=== PATIENT | female | born 1990 | race Caucasian/White ===

== ENCOUNTER 2020-01-07 10:17 | Observation (INO) | payer BC, SELFPAY ==
--- NOTE | 2020-01-07 | ECHO_ITS ---
Patient Info Name: Apple Cisse Age: 29 years : 1990 Gender: Female Ht: 65 in Wt: 150 lbs BSA: 1.78 m2 HR: 77 bpm BP: 108 / 71 mmHg Technical Quality: Good Exam Date: 01/07/2020 4:30 PM Exam Location: [facility] Exam Room: 301 Patient Status: Inpatient Admit Date: 01/07/2020 Flange Turner: Selina Crenshaw RCS Attending Provider: Mo Schroeder MD Exam Type: CA echo doppler w bubble study Study Info Indications - tia Complete two-dimensional, color flow and Doppler transthoracic echocardiogram is performed with agitated saline. Contrast/Agitated Saline Contrast/Ag. Saline: Agitated Saline Amount: 20.00 ml Administered By: Leanna Min RN Summary 1. Normal LV size and wall thickness; normal LV systolic and diastolic function, EF 60-65%. Normal structure of the valves. Trivial TR, RVSP 25 mmHg. Normal atrial septum, no evidence of interatrial shunt on injection of agitated normal saline. Normal sinus rhythm. Left Ventricle Left ventricular chamber dimension is normal. Left ventricular systolic function is normal, estimated at 60-65%. There is no increased left ventricular wall thickness. Left ventricular septal wall motion is normal. The left ventricular diastolic function is normal. Right Ventricle Right ventricular chamber dimension is normal. Right ventricular systolic function is normal. Left Atria Left atrial chamber dimension is normal. Right Atria Right atrial chamber dimension is normal. Atrial Septum Intact interatrial septum visualized by agitated saline imaging. Aortic Valve There is no aortic valve sclerosis. There is no aortic valve stenosis. There is trace aortic valve regurgitation. Pulmonic Valve The pulmonic valve is normal. There is trace pulmonic regurgitation. Mitral Valve The mitral valve has normal leaflets. There is no mitral valve stenosis. There is no mitral valve regurgitation. Tricuspid Valve The tricuspid valve leaflets are normal. There is no significant tricuspid valve stenosis. There is trace tricuspid valve regurgitation. No pulmonary hypertension, estimated pulmonary arterial systolic pressure is 25 mmHg. Pericardium/Pleural The pericardium appears normal. There is no pericardial effusion. Inferior Vena Cava Normal inferior vena cava with >50% collapse upon inspiration consistent with normal right atrial pressure, 10 mmHg. Aorta The aortic root size at the sinus of Valsalva is normal. The prox ascending aorta size is normal. Left Ventricular Outflow Tract Name Value Normal LVOT 2D LVOT Diameter 2.0 cm LVOT Doppler LVOT Peak Gradient 5 mmHg LVOT Mean Gradient 3 mmHg LVOT VTI 23 cm LVOT VTI/AV VTI Ratio 1.0 LVOT Stroke Volume 76 ml LVOT CO 14.9 l/min LVOT CI 8.4 l/min/m2 Pulmonic Valve
--- NOTE | ~2020-01-07 | MR_ITS ---
EXAMINATION: MR brain/brain stem wo/w con DATE: 01/08/2020 07:49 INDICATION: Right arm numbness. Right face numbness. TECHNIQUE: Magnetic resonance imaging (MRI) of the brain and brainstem was performed without and with 15 mm MultiHance intravenous contrast. Sequences included sagittal and axial T1-weighted FSE, axial diffusion-weighted FS EPI, axial T2*-weighted GRE, axial T2-weighted FLAIR Propeller, and axial T2-we ighted Propeller. Postcontrast sequences included axial and coronal T1-weighted FSE. Apparent diffusi on coefficient (ADC) maps were created. COMPARISON: Brain MRI 06/07/2008, head CTA 01/07/2020 FINDINGS: There is no intracranial hemorrhage, acute infarction, or abnormal intracranial mass lesion . The ventricles are normal in size. The paranasal sinuses are clear. The orbits are normal. The mast oid air cells are normal. IMPRESSION: 1. Normal brain. Reviewed, dictated and finalized at location A. IMPRESSION: 1. Normal brain.
--- NOTE | ~2020-01-07 | US_ITS ---
EXAMINATION: US carotid duplex BI EXAM DATE: 01/07/2020 16:04 INDICATION: Right-sided blurry vision, right arm paresthesia. TECHNIQUE: Grayscale, color and pulsed Doppler images of the cervical carotid arteries were obtained . The degree of vessel stenosis is placed in one of the following categories: normal, <50% stenosis, 50-69% stenosis, >=70% stenosis but less than near-occlusion, near-occlusion, or occlusion. Note that percent stenosis relative to normal distal artery lumen diameter is indirectly measured from velocit y measurements as described by Altaf, et al. Radiology 2003; 229:340-346. There is no prior study fo r comparison. FINDINGS: RIGHT SIDE: Right common carotid artery peak systolic velocity (PSV in cm/s): 102 Right bulb/internal carotid artery peak systolic velocity (PSV in cm/s): 96 Right internal carotid artery end diastolic velocity (EDV in cm/s): 51 Right ICA/CCA peak systolic ratio: 0.9 Right external carotid artery peak systolic velocity (PSV in cm/s): 60 Right vertebral artery antegrade flow: yes There is no focal plaque identified. LEFT SIDE: Left common carotid artery peak systolic velocity (PSV in cm/s): 82 Left bulb/internal carotid artery peak systolic velocity (PSV in cm/s): 120 Left internal carotid artery end diastolic velocity (EDV in cm/s): 58 Left ICA/CCA peak systolic ratio: 1.5 Left external carotid artery peak systolic velocity (PSV in cm/s): 86 Left vertebral artery antegrade flow: yes There is no focal plaque identified. IMPRESSION: 1. Normal right internal carotid artery. 2. Normal left internal carotid artery. > Reviewed, dictated and finalized at location A.
--- NOTE | ~2020-01-07 | CT_ITS ---
EXAMINATION: CTA brain carotid EXAM DATE: 01/07/2020 10:50 INDICATION: Right-sided paresthesia. TECHNIQUE: Noncontrast head CT. Spiral CTA of the carotid arteries was performed with intravenous i njection 100 cc of Omnipaque 350. Axial, coronal, sagittal reformatted images reviewed. Additional r eformatted images created on dedicated 3-D workstation. NASCET comparable standard used to assess th e degree of arterial stenosis. Spiral CT angiogram cerebral arteries performed with the same intrave nous injection of contrast. Source images of the brain CTA transferred to dedicated workstation for 3 -D rotational image creation. Coronal, sagittal maximum intensity pixel images also reviewed. The d ose-length product (DLP) for this examination was 1575.30 mGy-cm. The exposure was tailored accordi ng to patient size, and iterative reconstruction (ASIR) was used as additional dose reduction techniq ue. Comparison is made to prior examination from 05/19/2008. FINDINGS: Normal-appearing aortic arch, 0% carotid stenosis bilaterally. The left vertebral artery is dominant. There is no carotid or vertebral basilar arterial dissection or fibromuscular dysplasia. T here are no cerebral artery aneurysms. There is symmetric cerebral artery arborization. The sagittal, transverse and sigmoid sinuses enhance normally, no venous sinus thrombosis. Internal cerebral veins also enhance normally. There is no acute intraparenchymal hemorrhage. No evidence of intraparenchymal brain mass lesion. N o evidence of acute infarction. There is no mass effect or midline shift. There is no obstructive hyd rocephalus suspected. There are no extra-axial collections. There are no calvarial acute fractures. There are no areas of abnormal enhancement on the postcontrast images. IMPRESSION: 1. No cervical arterial dissection or cerebral artery aneurysm. 2. No acute intracranial findings. As per stroke protocol, I called negative head CT results to emergency room , discussed with LIMA kothari at 01/07/2020 10:54 CDT. Reviewed, dictated and finalized at location A. IMPRESSION: 1. No cervical arterial dissection or cerebral artery aneurysm. 2. No acute intracranial findings. As per stroke protocol, I called negative head CT results to emergency room deirdreed with LIMA Hyatt at 01/07/2020 10:54 CDT.
--- NOTE | ~2020-01-07 | XR_ITS ---
EXAMINATION: XR chest 1V portable EXAM DATE: 01/07/2020 11:22 INDICATION: Right-sided numbness. TECHNIQUE: Portable AP frontal chest x-ray was obtained. Comparison is made to prior examination from 07/21/2017. FINDINGS: The lungs are clear. There are no pleural effusions. Cardiac silhouette is prominent but magnified on this AP technique. There is no pneumothorax suspected. The bones and soft tissues are unremarkable. IMPRESSION: No acute cardiopulmonary findings. Reviewed, dictated and finalized at location A.
--- NOTE | 2020-01-07 10:25 | ECG_ITS ---
Measurements Intervals Climax Rate: 90 P: 50 AR: 125 QRS: 54 QRSD: 93 T: 38 QT: 358 QTc: 438 Interpretive Statements SINUS RHYTHM BASELINE ARTIFACT- V2 NORMAL ECG Electronically Signed On 01-07-2020 11:41:02 CDT by Abhishek Aguilar D.O.
[2020-01-07 10:27] LABS: Glucose Point of Care 101 (65-105)
--- NOTE | 2020-01-07 10:29 | ED.NEUROSD ---
HPI - Neuro Symptoms/Deficit General Chief Complaint: Suspected CVA Stated Complaint: Poss CVA Time Seen by Provider: 01/07/20 10:25 Source: patient and EMS Mode of arrival: EMS Limitations: no limitations History of Present Illness HPI Narrative: This patient is a 29 year old female who presents for evaluation of right facial numbness and right arm numbness. She states she noticed that her right eye vision were blurry at 8 30 am when she started reading an email. She reports she usually has this vision change before the start of her migraine. Then 1 hour later she noticed she developed numbness to right face and right arm down to her elbow. She denies focal weakness. She denies having an headache which is why she is concerned. Time: 08:30 Location: right face Context: gradual onset On Anticoagulants: No Related Data Home Medications Medication Instructions Recorded Confirmed No Home Medications 01/07/20 01/07/20 Allergies Allergy/AdvReac Type Severity Reaction Status Date / Time Penicillins Allergy Unknown DIFFICULTY Verified 01/07/20 10:47 BREATHING tomato Allergy Itching Verified 01/07/20 15:21 Review of Systems Review of Systems: All systems reviewed & are unremarkable except as noted in HPI and below Constitutional: Constitutional: Denies chills and Denies fever(s) Eyes: Eyes: Reports change in vision ENT: Denies dizziness Cardiovascular: Cardiovascular: Denies chest pain Respiratory: Respiratory: Denies cough and Denies dyspnea Neurologic: Denies headache(s) and Reports numbness PMFSH Past Medical History Medical History (Updated 01/07/20 @ 18:23 by Madie Zavala MD) History of migraine Surgical History Surgical History (Updated 01/07/20 @ 15:20 by Valorie Henry NP) H/O tubal ligation H/O umbilical hernia repair History of 3 sections Family History Family History (Updated 01/07/20 @ 15:22 by Valorie Henry NP) Father Healthy adult Father Healthy adult Social History Social History (Updated 01/07/20 @ 15:23 by Valorie Henry NP) Social History: the patient is engaged to gentleman that is in the . She has 4 children. 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 Her mom she said could be the power contract administration coordinator for healthcare. The patient is a full code. Occasionally drinks alcohol. She tells me that she does not use tobacco. She said she is is marijuana or illicit drugs. Smoking packs per day: 0.25 Smoking cigarettes per day: 5.0 Years smoked: 5 Smoking pack-years: 1.25 Alcohol intake: current Drinks per week: 1 Substance use: never Living arrangements: with family Gender identity (if verbalized by the patient): Female Sexual Orientation (if Verbalized by the Patient): Straight or Heterosexual Spiritual care concerns: No Exam Narrative: Exam Narrative: GENERAL: Well-appearing, well-nourished, and in no acute distress. HEAD: Normocephalic, atraumatic EYES: PERRLA and EOMI, conjunctiva clear without discharge EARS: TM's clear bilaterally without erythema or dullness NOSE: Nares clear, no rhinorrhea or epistaxis THROAT:Mucous membranes moist, Oropharynx normal without erythema, exudate, peritonsillar swelling or fluctuance NECK: Supple, without lymphadenopathy or mass RESPIRATORY: No respiratory distress, Airway patent, Respirations non-labored, Clear to auscultation without rales, rhonchi or wheeze HEART: Regular rate and rhythm. No murmur heard. Normal peripheral pulses. ABDOMEN: Soft, nontender, nondistended, normal active bowel sounds. No masses. No rebound or guarding, No organomegaly. EXTREMITIES: No edema, normal strength with full range of motion. SKIN: Warm, dry, normal color without rash NEURO: Alert and oriented x3. CN 2-12 grossly intact. PSYCH: Normal mood and affect. Course Consultations Consultation #1: I spoke with Dr. Kellogg at [facility] (stroke Attending). He agrees patient is
[2020-01-07 10:41] VITALS: BP 123/84; PULSE 88; RESP 16; TEMP 36.9; O2SAT 100
[2020-01-07] MEDS: diphenhydrAMINE HCl INJ 50 MG/ML VIAL 25 MG IV PUSH (10:48)
[2020-01-07] MEDS: METOCLOPRAMIDE HCL INJ 10 MG/2 ML VIAL IV PUSH (10:48)
[2020-01-07 11:03] LABS: Basophils Absolute Auto 0.1 K/mm3 (0.0-0.1); Basophils Percent Auto 0.5 % (0.2-1.2); Eosinophils Percent Auto 0.3 % (0-4.4); Hematocrit 42.6 % (37.0-47.0); Hemoglobin 14.4 g/dL (12.0-15.0); Immature Granulocyte Absolute 0.02 K/mm3 (0.00-0.031); Immature Granulocyte Percent A 0.2 % (0-0.5); Lymphocytes Absolute Auto 2.68 K/mm3 (0.9-3.2); Lymphocytes Percent Auto 28.3 % (18.3-44.2); Mean Corpuscular HGB Conc 33.8 g/dl (32-36); Mean Corpuscular Hemoglobin 32.7 pg (26-34); Mean Corpuscular Volume 96.6 fl (80-100); Mean Platelet Volume 10.2 fl (7.4-10.4); Monocytes Absolute Auto 0.5 K/mm3 (0.1-0.6); Monocytes Percent Auto 5.6 % (2.6-8.5); Neutrophils Absolute Auto 6.2 K/mm3 (1.3-6.7); Neutrophils Percent Auto 65.1 % (45.5-73.1); Platelet Count Result 161 k/mm3 (150-375); Red Blood Count 4.41 M/mm3 (4.2-5.4); White Blood Count 9.5 K/mm3 (4.5-10.0)
[2020-01-07 11:11] LABS: Prothrombin Time 12.8 Seconds (11.1-14.7)
[2020-01-07 11:12] LABS: Partial Thromboplastin Time 29.4 SECONDS (22.3-36.8)
[2020-01-07 11:39] LABS: Alanine Aminotransferase 17 U/L (4-35); Albumin Level 4.3 g/dL (3.5-5.1); Alkaline Phosphatase 82 U/L (38-126); Aspartate Amino Transferase 25 U/L (14-36); Bilirubin,Total 0.9 mg/dL (0.2-1.3); Blood Urea Nitrogen 9 mg/dL (7-17); Calcium 8.2 mg/dL (8.4-10.2); Carbon Dioxide 24 mmol/L (22-30); Chloride 101 mmol/L (98-107); Estimated CRCL calculation 123 ml/min; Estimated Glomerular Filt Rate > 60; Glucose 89 mg/dL (65-105); Potassium 3.6 mmol/L (3.4-5.0); Sodium 136 mmol/L (137-145)
[2020-01-07 11:49] LABS: Troponin I < 0.012 ng/mL (0.000-0.034)
[2020-01-07 12:42] VITALS: BP 106/64; PULSE 74; RESP 18; O2SAT 99
[2020-01-07] MEDS: ASPIRIN 81 MG CHEWABLE TABLET 324 MG PO (12:45)
[2020-01-07 13:40] VITALS: BP 108/71; PULSE 73; RESP 20; O2SAT 100
[2020-01-07 13:57] VITALS: BMI 27.6
[2020-01-07 14:00] VITALS: BP 108/78; PULSE 78; RESP 18; TEMP 37.2; O2SAT 100
--- NOTE | 2020-01-07 14:01 | ADMGEN ---
This patient, Apple Cisse, was admitted to [facility] Surg Room 301-01. Patient/family oriented to hospital policies and general routines including ID bracelet, bed and alarms, visiting hours, pain management, procedures, bathroom and other care routines, personal items, smoking policy, room service/diet, and visiting hours. Valuables list has been completed. Information on how to activate the Rapid Response Team has been discussed. Patient/Family are encouraged to report perceived risks to care and to ask questions if they do not understand what they are told or what they should do.
--- NOTE | 2020-01-07 15:14 | PM.IMHP ---
H&P: HPI History of Present Illness Chief complaint: right arm/right face paresthesia Narrative: Apple Cisse is a 29 year old female who has no past medical history. The patient stated that she had fever and chills with body aches about 1 week ago and was tested for covid 19 and was found to be negative. The patient no longer has any fever or chills but this morning she woke up with numbness and tingling to the right side of her face and down her right arm. She has no history of any CVAs are hypertension in the past. She is not taking any arbn-gfq-blxuong or prescribed medication at this time. The patient did not take anything to relieve this discomfort. This was also accompanied by right eye blurred vision this all started about 830 this morning when she started reading or e-mail. She states that she does have migraines and will have blurred vision just prior to having a migraine but she just had the blurred vision without a migraine today. An hour after the blurred vision started then she developed the numbness and tingling to the right side of her face and right arm and down her right elbow. She has no focal weakness. No migraine at this time. CT of the brain shows nothing acute. Chest x-ray was read as no acute cardiopulmonary findings per Radiology. Patient was given Benadryl Reglan and a chewable aspirin. Patient stated that she has some mild numbness and tingling now to the right side of her face but no longer to her arm and still has some mild blurred vision right eye but is improved. Date of service 01/07/2020 Review of Systems Review of Systems: All systems reviewed & are unremarkable except as noted in HPI and below Constitutional: Constitutional: Reports as per HPI and Reports no additional constitutional complaints Eyes: Eyes: Reports as per HPI and Reports no additional eye complaints ENT: Reports system reviewed and no additional complaints, except as documented and Reports Normal hearing present Cardiovascular: Cardiovascular: Reports no additional cardiovascular complaints Respiratory: Respiratory: Reports no additional respiratory complaints and Reports no additional respiratory complaints Gastrointestinal: Gastrointestinal: Reports as per HPI and Reports no additional gastrointestinal complaints Musculoskeletal: Musculoskeletal: Reports no additional musculoskeletal complaints Integumentary/Breasts: Skin/Breast: Reports system reviewed and no additional complaints, except as docu and Reports as per HPI Neurologic: Reports system reviewed and no additional complaints, except as documented, Reports as per HPI and Reports Normal hearing present Psychiatric: Psychiatric: Reports no additional psychiatric complaints and Reports as per HPI Endocrine: Endocrine: Reports no additional endocrine complaints Hematologic/Lymphatic: Hematologic/Lymphatic: Reports no additional hematologic/lymphatic complaints Allergic/Immunologic: Allergic/Immunologic: Reports no additional allergic/immunologic complaints [facility] Past Medical History Medical History (Updated 01/07/20 @ 15:20 by Valorie Henry NP) History of migraine Surgical History Surgical History (Updated 01/07/20 @ 15:20 by Valorie Henry NP) H/O tubal ligation H/O umbilical hernia repair History of 3 sections Family History Family History (Updated 01/07/20 @ 15:22 by Valorie Henry NP) Father Healthy adult Father Healthy adult Social History Social History (Updated 01/07/20 @ 15:23 by Valorie Henry NP) Social History: the patient is engaged to [employer] that is in the . She has 4 children. 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 The patient is a full code. Occasionally drinks alcohol. She tells me that she does not use tobacco. She said she is is marijuana or illicit drugs. Smoking packs per day: 0.25 Smoking cigarettes per day: 5.0
[2020-01-07 20:00] VITALS: PULSE 77
[2020-01-07 21:53] VITALS: BP 112/74; PULSE 63; RESP 20; TEMP 37.3; O2SAT 99
[2020-01-08] VITALS (9 sets, daily range): BP systolic 112–116; BP diastolic 72–82; PULSE 61–98; RESP 18–20; TEMP 36.8–37.2; O2SAT 99–100
[2020-01-08 06:03] LABS: Basophils Absolute Auto 0.1 K/mm3 (0.0-0.1); Basophils Percent Auto 0.6 % (0.2-1.2); Eosinophils Absolute Auto 0.1 K/mm3 (0-0.3); Eosinophils Percent Auto 0.8 % (0-4.4); Hematocrit 39.8 % (37.0-47.0); Hemoglobin 13.6 g/dL (12.0-15.0); Immature Granulocyte Absolute 0.03 K/mm3 (0.00-0.031); Immature Granulocyte Percent A 0.3 % (0-0.5); Lymphocytes Absolute Auto 2.93 K/mm3 (0.9-3.2); Lymphocytes Percent Auto 33.6 % (18.3-44.2); Mean Corpuscular HGB Conc 34.2 g/dl (32-36); Mean Corpuscular Hemoglobin 32.6 pg (26-34); Mean Corpuscular Volume 95.4 fl (80-100); Mean Platelet Volume 10.6 fl (7.4-10.4); Monocytes Absolute Auto 0.6 K/mm3 (0.1-0.6); Monocytes Percent Auto 7.2 % (2.6-8.5); Neutrophils Percent Auto 57.5 % (45.5-73.1); Platelet Count Result 145 k/mm3 (150-375); Red Blood Count 4.17 M/mm3 (4.2-5.4); White Blood Count 8.7 K/mm3 (4.5-10.0)
[2020-01-08 06:24] LABS: Alanine Aminotransferase 15 U/L (4-35); Albumin Level 4.2 g/dL (3.5-5.1); Alkaline Phosphatase 72 U/L (38-126); Aspartate Amino Transferase 23 U/L (14-36); Bilirubin,Total 1.3 mg/dL (0.2-1.3); Blood Urea Nitrogen 8 mg/dL (7-17); CRP 0.6 mg/dL (<1.0); Calcium 8.7 mg/dL (8.4-10.2); Carbon Dioxide 25 mmol/L (22-30); Chloride 104 mmol/L (98-107); Estimated CRCL calculation 139 ml/min; Estimated Glomerular Filt Rate > 60; Glucose 91 mg/dL (65-105); Potassium 3.7 mmol/L (3.4-5.0); Sodium 136 mmol/L (137-145)
[2020-01-08 07:57] LABS: Cholesterol 167 mg/dL (0-200); HDL Direct 61 mg/dL; Triglycerides 116 mg/dL (<150)
[2020-01-08] MEDS: ASPIRIN 325 MG ENTERIC TABLET PO (08:06)
[2020-01-08 08:07] LABS: LDL Cholesterol Direct 90 mg/dL
--- NOTE | 2020-01-08 13:04 | PM.IMPN ---
Progress Note: A&P Assessment and Plan (1) TIA (transient ischemic attack): Code(s): G45.9 - Transient cerebral ischemic attack, unspecified Status: Acute Assessment and Plan: She presented with symptoms which are concerning for TIA. The emergency doctor spoke with the [facility] Stroke Team who advised she is not a candidate for tPA and recommended admission to our facility for MRI. She was given ASA. Dr. Guillaume with neurology is on board. CTA head/neck revealed 0% carotid stenosis bilaterally with no cervical arterial dissection or cerebral artery aneurysm, no hemorrhage, no mass lesion, and no acute infarction. Brain MRI performed today was unremarkable. Carotid doppler US confirmed normal internal carotid arteries. Echocardiogram with bubble study was performed with no evidence of interatrial shunt, EF 60-65%, Trivial TR RVSP 25 mmHg, and normal diastolic function. Lipid panel revealed LDL 90, HDL 61, and total cholesterol 167. Plan to begin high-intensity statin for secondary prevention. Continue ASA. Will order LACY, anti-cardiolipin Ab, and lupus anticoagulant testing. (2) Nonsustained ventricular tachycardia: Code(s): I47.2 - Ventricular tachycardia Status: Acute Assessment and Plan: There was an 11 beat run of non-sustained ventricular tachycardia noted on telemetry monitoring. Her echocardiogram revealed a normal LV size and wall thickness; normal LV systolic and diastolic function, EF 60-65%. Normal structure of the valves. Trivial TR, RVSP 25mmHg. Normal atrial septum, no evidence of interatrial shunt on injection of agitated normal saline, and normal sinus rhythm. Electrolyte levels were sufficient. She remained asymptomatic during the episode. Plan to monitor overnight on telemetry. (3) DVT prophylaxis: Code(s): Z29.9 - Encounter for prophylactic measures, unspecified Status: Acute Assessment and Plan: Continue SCDs. Subjective Date/time seen: 01/08/20 13:04 Interval history: Mrs. Cisse is a 29 y.o. female who is seen in follow-up for numbness and tingling to the right side of her face and upper arm which lasted from 8:30AM - 8/9:00 PM yesterday (01/06). She reports that she initially developed difficulty focusing in the right eye. Subsequently, she noticed a loss of her peripheral vision. This was followed by numbness to the right side of the face, shoulder, and upper arm. She denied focal weakness and speech change. She did report that her noted that she was repeating and skipping words in her text messages to him. She has a hx of migraines with aura but had no headache with this episode. Today, she feels fine. She has no complaints of headache, vision change, speech change, weakness, or paresthesias. Her prior sx have completely resolved without recurrence. She has no complaints of chest pain, palpitations, or dyspnea. She denies calf pain. She denies subjective fever and chills. She is eating well. No N/V. No dizziness, generalized weakness or lightheadedness. Review of Systems Review of Systems: All systems reviewed & are unremarkable except as noted in HPI and below Exam Narrative: Exam Narrative: General: Pleasant and well-developed 29 y.o. female who is lying in the semi-recumbent position in bed in no acute distress. HEENT: Normocephalic and atraumatic. Conjunctivae and lids normal. PERRL. EOMI. Ear canals clear with pearly TM and no erythema, fluid level, or bulging. Moist mucous membranes. Oropharynx without erythema or exudate. Neck: Supple without lymphadenopathy or masses. Cardiac: Regular rate and rhythm. S1 and S2 normal. No murmur appreciated. No carotid bruits. Telemetry was reviewed with sinus rhythm with infrequent PVCs and one episode of an 11 beat run of non-sustained ventricular tachycardia overnight last night around midnight. Lungs: Effort normal. Lungs clear to auscultation bilaterally. Abdomen: Normoactive bowel sounds. Abdomen is soft
--- NOTE | 2020-01-08 13:19 | CONS_ITS ---
DATE OF CONSULTATION: HISTORY OF PRESENT ILLNESS: This 29 years old right-handed female has been admitted to [facility] through the emergency room for the complaint of fever with chills and body aches of 1 week duration. When she was tested for COVID-19, was found to be negative. Though patient has no fever or chills anymore, but she was experiencing numbness and tingling sensation to the right side of her face and right upper extremity. She has no history of stroke in the past. No history of hypertension in the past. She was not taking any bdgn-feg-tqdrzul medication. She has no associated blurred vision, but she does have ongoing history of migraine along with the blurred vision, but on today's visit, she had only the blurred vision without the headache and she developed tingling and numbness on the right side of face, right upper extremity and right elbow, though she did not become weak on 1 side or other side. PAST MEDICAL AND SURGICAL HISTORY: She has ongoing history of migraine, tubal ligation, umbilical hernial repair, 3 C-sections. SOCIAL HISTORY: She works in the [employer]. PHYSICAL EXAMINATION: VITAL SIGNS: Evaluation up until now revealed her to be afebrile with normotensive blood pressure 123/84, pulse 88, respiration 16. HEENT: Head normocephalic with no cranial bruit. Ears, nose, throat examination normal. NECK: Supple with no cervical bruit. No thyromegaly. No lymphadenopathy. HEART: Regular with no murmur. LUNGS: Clear to auscultation. ABDOMEN: Soft with no organomegaly. NEUROLOGICAL: She is awake, alert, oriented x3. Speech not dysphasic, not dysarthric, not dysphonic. Pupils round, regular. Weinstein of vision full. Extraocular movements full. Face symmetrical. Tongue midline. Motor examination reveals normal strength and tone both in upper and lower extremities with symmetrical reflexes, downgoing plantar responses. There is no evidence of gross sensory or cerebellar deficit. LABORATORY DATA: Evaluation up until now included CBC with WBC 9.5, hemoglobin 14.4, platelet count 161. Normal basic metabolic panel except sodium borderline that is 136, creatinine 0.5, BUN only 9, calcium 8.2, troponin less than 0.012, and hepatic enzymes normal with albumin of 4.3. IMAGING DATA: Initial chest x-ray negative. Head neck CTA negative for any cervical artery dissection of the anterior or posterior circulation and also with no evidence of aneurysm. IMPRESSION: Complicated migraine with the possibility of a transient ischemic attack for which the workup at this stage, at least, CTA is negative. MRI has been done, which revealed her to have no space-occupying lesion. No evidence of ischemia or stroke. Doppler study of the carotids is also normal, and chest x-ray is negative. She also had an echocardiogram, which is negative. PLAN: At this stage is to continue the aspirin and the p.r.n. medication. JENNIE RAMIREZ M.D. CUSTOMS COLLECTOR CUSTOMS COLLECTOR D I MT: [place]
[2020-01-08] MEDS: ROSUVASTATIN 10 MG TABLET 20 MG PO (15:48)
[2020-01-09] VITALS: PULSE 82
[2020-01-09 04:00] VITALS: PULSE 64
[2020-01-09 06:00] VITALS: BP 137/64; PULSE 63; RESP 20; TEMP 36.8; O2SAT 99
[2020-01-09 06:42] LABS: Blood Urea Nitrogen 10 mg/dL (7-17); Calcium 8.8 mg/dL (8.4-10.2); Carbon Dioxide 23 mmol/L (22-30); Chloride 103 mmol/L (98-107); Estimated CRCL calculation 139 ml/min; Estimated Glomerular Filt Rate > 60; Glucose 106 mg/dL (65-105); Sodium 135 mmol/L (137-145)
[2020-01-09] MEDS: ASPIRIN 325 MG ENTERIC TABLET PO (07:49)
[2020-01-09] MEDS: ROSUVASTATIN 10 MG TABLET 20 MG PO (07:49)
[2020-01-09 08:05] VITALS: PULSE 87
[2020-01-09 08:56] LABS: CRP 0.9 mg/dL (<1.0)
[2020-01-09 09:58] LABS: Folic Acid 12.3 ng/mL (2.76->20)
[2020-01-09 12:00] VITALS: PULSE 80
--- NOTE | 2020-01-09 12:58 | PM.CNCAR ---
Assessment and Plan Additional Plan 29-year-old white female with an episode of transient cerebral ischemia couple of days ago symptoms have completely resolved. Following neurological consultation she has been placed on aspirin therapy. Her resting 12 lead ECG looks normal as does her echocardiogram. She had a brief arrhythmia noticed on telemetry the night before last but no evidence of atrial fibrillation. The arrhythmia noted on telemetry is not a example of atrial fibrillation in my opinion so I doubt it has anything to do with her clinical presentation. In the setting of normal LV function and no symptoms I do not think any further workup of ventricular arrhythmias needs to be recommended. Given this lady's very young age I would recommend completely rule out a patent foramen ovale and I would therefore recommend pursuing a transesophageal echocardiogram as an outpatient. She can be discharged home from my perspective and I will arrange for this exam to be done following discharge as an outpatient. Bertrand Pruett MD [facility] History of Present Illness History of Present Illness Consult date/time: Date of service:01/09/20 12:58 Reason For Visit: right arm/right face paresthesia Narrative: This is a very pleasant 29-year-old lady am seeing at the request of the hospitalist today because of a suspected ventricular arrhythmia that was noticed on telemetry yesterday morning on telemetry. The patient was hospitalized here with what appears to be a TIA. She presented to the emergency room with chief complaint of right upper extremity and ran right facial numbness that occurred transiently while she was at home. There might have been some visual blurring at the same time but that was not entirely clear. In any event the symptoms were self-limited and resolved spontaneously within 30-60 minutes. Came to the emergency room for evaluation and was admitted and has been on telemetry since then. Her telemetry demonstrates that her cardiac rhythm is normal since admission there has been no evidence of atrial fibrillation there was however he yesterday in the evening an episode a wider QRS tachycardia that persisted for about 8 or 9 beats and then reverted back to a sinus rhythm. There were no obvious retrograde P waves or AV dissociation this was determined to be probably an episode of nonsustained ventricular tachycardia and prompted this consultation. The patient does not have any cardiac symptoms of any kind she has no previous history of any cardiac pathology. She states that in the past when she was there was some concern that she might have an enlarged heart and an evaluation with an echocardiogram was done by a cardiology group in [place]. She says that the examination was unremarkable. She had an echocardiogram done here at [facility] interpreted by my partner Dr. Thompson which was a negative exam. The echocardiogram was done with saline contrast and there was no visible evidence of an intracardiac shunt year. Because of the arrhythmia we are asked to see her in consultation the patient apparently is anticipating being discharged but the discharge is pending my seeing her in consultation and improving discharge. She did state that 1 of her daughters has a atrial septal defect. She is being followed by tower air traffic control specialist. Patient is otherwise enjoying good health she is physically active she does exercise for fitness. 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 Review of Systems Constitutional: Constitutional: Reports no additional constitutional complaints Eyes: Eyes: Reports no additional eye complaints ENT: Reports system reviewed and no additional complaints, except as documented Cardiovascular: Cardiovascular: Reports no additional cardiovascular complaints Respiratory: Respiratory: Reports no additional respiratory complaints Gastrointestinal: Gastrointestinal: Reports no additional gastrointe
[2020-01-09 14:00] VITALS: BP 112/65; PULSE 89; RESP 16; TEMP 36.7; O2SAT 100
--- NOTE | 2020-01-09 14:23 | PM.DS ---
DS: Admitting Diagnosis Admitting Diagnosis Admitting Diagnosis: Transient cerebral ischemic attack, unspecified DS: Discharge Diagnosis Discharge Diagnosis (1) Complicated migraine: Code(s): G43.109 - Migraine with aura, not intractable, without status migrainosus Status: Acute Assessment and Plan: -----Patient's symptoms are consistent with a complicated migraine after seeing neurology. Patient has a history of migraines years ago and her last 1 was during . Her symptoms have completely resolved and she has not had any other issues. Neurology was consulted and heart did recommend an aspirin at this time. She is going to follow up with them outpatient. No need for prophylaxis treatment since they are very infrequent. (2) Nonsustained ventricular tachycardia: Code(s): I47.2 - Ventricular tachycardia Status: Acute Assessment and Plan: -----There was an 11 beat run of non-sustained ventricular tachycardia noted By previous provider on telemetry monitoring. Her echocardiogram revealed a normal LV size and wall thickness; normal LV systolic and diastolic function, EF 60-65%. Normal structure of the valves. Trivial TR, RVSP 25mmHg. Normal atrial septum, no evidence of interatrial shunt on injection of agitated normal saline, and normal sinus rhythm. Electrolyte levels were sufficient. She remained asymptomatic during the episode. cardiology consulted and recommends PENNY outpatient (3) DVT prophylaxis: Code(s): Z29.9 - Encounter for prophylactic measures, unspecified Status: Acute DS: Summary Hospital Course Reason for hospitalization: right-sided numbness Hospital Course: patient is a 29-year-old female with a distant history of migraines who presented emergency room for right facial numbness and right arm numbness with blurred vision in her right eye. She states she usually gets vision changes before start of her migraines but she never not a severe headache which is why she came to the emergency room. CBC within normal limits. BMP within normal limits. Head and neck CTA showed no cervical arterial dissection or aneurysm with no acute findings. Chest x-ray was negative. Patient was admitted to the hospitalist service and was seen by Neurology. She underwent a brain MRI which was negative for pathology. Her symptoms completely resolved and she had no recurrence of the symptoms. Neurology stated she is likely had a complicated migraine. During this time she had an arrhythmia noted on telemetry which appeared to be a short run of V-tach although she was asymptomatic. Cardiology was consulted and did not recommend any additional testing him hospital but will follow-up with her outpatient and likely do a PENNY. Echocardiogram was normal as detailed above. Overall, the patient was back to baseline the day of discharge. She was educated about the worrisome signs and symptoms to come back to emergency room for and was discharged in stable condition. Status at Discharge Functional status at discharge: independent ambulation Overall status at discharge: patient is back to baseline Time Spent with Patient Time attestation: Total time spent providing and/or coordinating discharge services:38 min Time spent: Greater than 30 minutes Exam Narrative: Exam Narrative: General: Well developed well nourished patient in NAD HEENT: normocephalic Neck: supple Neuro: Alert and oriented x4 . Cranial nerves 2-12 intact. Able to do rapid alternating movements and [id number]. Strength 5/5 in the upper lower extremities. Sensation to sharp and dull intact. CV:RRR . No abnormalities on telemetry overnight Resp:CTA Abd: Soft, non distended. No pain to palpation. Positive bowel sounds Extremities: No swelling, erythema, or pain to palpation. DS: Data Data Completed and Pending Labs on day of discharge: Labs from last 24 hours 01/09/20 01/09/20 01/09/20 06:21 06:21 06:21
[2020-01-13 18:15] LABS: Lupus dRVVT 1:1 Mix Interpreta Not Indicated; Lupus dRVVT Screen 32 sec (<=45); PTT-LA Screen 32 sec (<=40)
--- NOTE | 2020-01-14 11:30 | PC.NURSE ---
Coag dRVVT is negative.
[2020-01-15 02:42] LABS: Anti Cardio Antibody IgM <12 MPL (<=12); Anti Cardiolipin Antibody IgA <11 APL (<=11); Anti Cardiolipin Antibody IgG <14 GPL (<=14)
--- NOTE | 2020-01-18 09:44 | PC.NURSE ---
dRVVT- negative Lupus- negative LACY- negative Anti-Cardiolpin- WNL
== END 2020-01-09 14:53 | disposition home or self-care (01) ==
LOC: ANHED 11:53 → ANH3MEDSUR 13:28
PROVIDERS: Nurse Practitioner; Physician Assistant; Admitting Provider Family Medicine; Emergency Provider General Practice; PCP Internal Medicine Gastroenterology; Visit Provider Physician Assistant
DX: G43.109 Migraine with aura, not intractable, without status migrainosus (principal); I47.2 Ventricular tachycardia; R20.0 Anesthesia of skin
CPT/HCPCS: 36415; 70496; 70498; 70553; 71045; 80048; 80053; 80061; 82607; 82746; 82948; 83735; 84443; 84484; 85025; 85610; 85613; 85730; 86038; 86140; 86147; 93005; 93306; 93880; 96374; 96375; 99285; A9270; A9577; G0378; J1200; J2765; Q9967

== ENCOUNTER 2020-01-18 00:48 | Outpatient (CLI) | payer BC, SELFPAY ==
[2020-01-18 20:43] LABS: SARS-CoV-2 RNA PCR Negative
== END 2020-01-18 00:49 | disposition home or self-care (01) ==
LOC: ANHCOVIDDT 00:48
PROVIDERS: Visit Provider Specialist
DX: Z01.818 Encounter for other preprocedural examination (principal); Z11.59 Encounter for screening for other viral diseases
CPT/HCPCS: 87635; C9803; U0003

== ENCOUNTER 2020-01-21 05:23 | Day surgery (SDC) | payer BC, SELFPAY ==
[2020-01-18 15:15] VITALS: BMI 25.7
[2020-01-21] VITALS (8 sets, daily range): BP systolic 110–145; BP diastolic 83–99; PULSE 80–117; RESP 14–28; TEMP 36.6–37.1; O2SAT 97–100
--- NOTE | 2020-01-21 | ECHO_ITS ---
Patient Info Name: Apple Cisse Age: 29 years : 1990 Gender: Female Ht: 65 in Wt: 154 lbs BSA: 1.80 m2 HR: 129 bpm BP: 115 / 88 mmHg Heart Rhythm: Sinus Rhythm Technical Quality: Good Exam Date: 01/21/2020 8:28 AM Exam Location: [facility] Patient Status: Outpatient Admit Date: 01/21/2020 Staff Ordering Physician: Bertrand Pruett MD Inpatient Services Rn: Gabe Cross RDCS Attending Provider: Bertrand Pruett MD Referring Physician: Seble HENNESSY; Exam Type: CA echo transesophageal Study Info Indications 435.9 - TIA Complete two-dimensional, color flow and Doppler transesophageal study is performed. Agitated saline study is performed. Contrast/Agitated Saline Contrast/Ag. Saline: Agitated Saline Amount: 8.00 ml Existing IV Access: Yes History/Risk Factors Stroke. Summary 1. Intact interatrial septum visualized by color flow and agitated saline imaging. 2. PENNY demonstrates no evidence of a patent foramen ovale in this young woman with recent TIA. Left Ventricle Left ventricular chamber dimension is normal. Left ventricular systolic function is normal with an ejection fraction by Biplane Method of Discs of Empty. Right Ventricle Right ventricular chamber dimension is normal. Left Atria Left atrial chamber dimension is normal. Right Atria Right atrial chamber dimension is normal. Atrial Septum Intact interatrial septum visualized by color flow and agitated saline imaging. PENNY demonstrates no evidence of a patent foramen ovale in this young woman with recent TIA. Aortic Valve The aortic valve is normal. Mitral Valve The mitral valve has normal leaflets. Tricuspid Valve The tricuspid valve leaflets are normal. Pericardium/Pleural The pericardium appears normal. Inferior Vena Cava Not well visualized inferior vena cava with Empty collapse upon inspiration consistent with Empty right atrial pressure, Empty. Aorta The aortic root size at the sinus of Valsalva is normal. Report Signatures
--- NOTE | 2020-01-21 08:06 | SUR.PREOP ---
0740-pt presents to the [facility] for a PENNY. No distress noted. PIV started and labs obtained and sent. Questions answered and verbalized understanding. Consent signed. Will continue to monitor.
[2020-01-21 08:29] LABS: Beta HCG Quantitative < 2.39 mIU/ML
--- NOTE | 2020-01-21 09:00 | P.SEDATION_ITS ---
Moderate Sedation Note-Pt Data Patient Data Diagnosis: TIA of recent occurrence uncertain etiology Present Complaint: no complaints this morning Procedure to be performed/Plan: transesophageal echocardiogram Allergies Allergy/AdvReac Type Severity Reaction Status Date / Time Penicillins Allergy Unknown DIFFICULTY Verified 01/18/20 15:15 BREATHING tomato Allergy Itching Verified 01/18/20 15:15 Home Medications Medication Instructions Recorded Confirmed Type aspirin [Adult Aspirin Regimen] 81 mg PO DAILY #30 tablet 01/09/20 01/18/20 Rx Sedation/Anesthesia: No previous sedation/anesthesia problems (including family history). [facility] Past Medical History Medical History (Updated 01/11/20 @ 07:13 by Marge Balderas PA-C) History of migraine Surgical History Surgical History (Updated 01/07/20 @ 15:20 by Valorie Henry NP) H/O tubal ligation H/O umbilical hernia repair History of 3 sections Family History Family History (Updated 01/07/20 @ 15:22 by Valorie Henyr NP) Father Healthy adult Father Healthy adult Social History Social History (Updated 01/07/20 @ 15:23 by Valorie Henry NP) Social History: the patient is engaged to [employer] that is in the . She has 4 children. 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 Her mom she said could be the power deputy prosecuting attorney for healthcare. The patient is a full code. Occasionally drinks alcohol. She tells me that she does not use tobacco. She said she is is marijuana or illicit drugs. Smoking packs per day: 0.25 Smoking cigarettes per day: 5.0 Years smoked: 5 Smoking pack-years: 1.25 Smoking status: Never smoker Alcohol intake: never Drinks per week: 1 Substance use: never Living arrangements: with family Gender identity (if verbalized by the patient): Female Spiritual care concerns: No Mod Sed Physical Exam Physical Exam Pre Procedural Exam: Normal: Appearance, Nose, Neck, Throat, Airway, Lungs, Heart Size, Heart Rate, Heart Rhythm, Neuro Exam and Extremities Hours since solid foods: 12 Hours since liquid intake: 12 Internal Medicine - PN: Obj Da Vital Signs Vital Signs: Vital Signs - 24 hr 01/21/20 08:03 Temperature 36.6 C Pulse Rate 90 Respiratory Rate 14 Blood Pressure 119/85 Pulse Oximetry 98 Labs Labs: Laboratory Results - last 24 hr 01/21/20 07:56 Beta HCG, Quant < 2.39 ASA Classification/Sedation ASA Classification/Sedation ASA Class: II Emergent: No Risks: Risks, benefits and alternatives explained and patient/family accepted plan for sedation. Patient re-evaluated immediately prior to sedation.
--- NOTE | 2020-01-21 09:15 | P.PCNCC_ITS ---
Cardiac Cath Procedure Note Date of procedure:: 01/21/20 Performing physician:: Bertrand Pruett MD Indication:: evaluation for recent TIA, rule out patent foramen ovale Brief clinical history:: 29-year-old otherwise healthy woman presented recently with a TIA, desire to rule out patent foramen ovale Procedure Procedure performed:: transesophageal echocardiogram Sedation/Medication given:: propofol used in aliquots total of 100 mg given Estimated blood loss:: no blood loss Procedure note:: following or pharyngeal benzocaine spray. The patient was sedated using propofol. Three aliquots were given non totaling 100 mg which provided very good procedural sedation. The PENNY probe was easily placed into the esophagus and imaging was performed of the atrial septum. Color Doppler int errogation was performed of the septum as well as agitated saline contrast injection. Following completion of this the PENNY probe was withdrawn and the patient will be recovered in the cath lab radiological technologist holding area. There were no apparent procedural complications the procedure was well tolerated. Findings:: The interatrial septum is anatomically normal. There is no visual discontinuity or septal defects or obvious PFO. Color Doppler interrogation of the atrial septum shows no Doppler evidence of shunting. agitated saline contrast injection did not show any evidence of intracardiac shunting. Conclusion:: Transesophageal echocardiogram unremarkable study showing no evidence of intracardiac shunt and no visible or shunt evidence of a patent foramen ovale Bertrand Pruett MD [facility]
--- NOTE | 2020-01-21 10:18 | SUR.PHASEII ---
1015-pt given D/C orders and instructions. Questions answered and verbalized understanding. AOx4. PIv removed intact. Taken via wheelchair to waiting vehicle. No distress noted or verbalized at time of departure.
== END 2020-01-21 10:15 | disposition home or self-care (01) ==
PROVIDERS: Visit Provider Specialist
PROC: (CPT 93312; principal; 2020-01-21 08:30)
PROC: (CPT 93312; 2020-01-21 08:30)
DX: G45.9 Transient cerebral ischemic attack, unspecified (principal); Z79.82 Long term (current) use of aspirin; Z79.891 Long term (current) use of opiate analgesic
CPT/HCPCS: 36415; 84702; 93312; 93320; 93325; J2704; J7040